=== PATIENT | female | born 1955 | race Caucasian/White ===

== ENCOUNTER 2016-11-02 09:21 | Day surgery (SDC) | payer BC ==
[2016-11-02] MEDS ORDERED: NS 500 ML IV 500 ML IV ONE (09:38)
[2016-11-02] MEDS ORDERED: TETRACAINE 0.5% OPHTH 1 DOSE AFFEYE ONE ×4 (09:40→12:35)
[2016-11-02] MEDS ORDERED: VIGAMOX 0.5% OPHTH 1 DOSE AFFEYE ONE ×6 (09:41→12:49)
[2016-11-02] MEDS ORDERED: PROLENSA OPHTH 1 DOSE AFFEYE ONE (09:52)
[2016-11-02] MEDS ORDERED: ALPHAGAN-P OPHTH 1 DOSE AFFEYE ONE (09:53)
[2016-11-02] MEDS ORDERED: CYCLOGYL 1% OPHTH 1 DOSE OP ONE ×3 (09:54→09:56)
[2016-11-02] MEDS ORDERED: MYDRIACIL OPHTH 1 DOSE AFFEYE ONE ×3 (09:54→09:56)
[2016-11-02] MEDS ORDERED: AK-DILATE 2.5% OPHTH 1 DOSE OP ONE ×3 (09:54→09:56)
[2016-11-02] MEDS ORDERED: VERSED ONE (10:05)
[2016-11-02] MEDS ORDERED: ALCAINE or OPHTHETIC AFFEYE ONE ×2 (11:28→11:30)
[2016-11-02] MEDS ORDERED: ALCAINE or OPHTHETIC 1 DOSE AFFEYE ONE ×2 (11:53→12:01)
[2016-11-02] MEDS ORDERED: VERSED IVP ONE ×2 (11:53→12:00)
[2016-11-02] MEDS ORDERED: AK-DILATE 10% OPHTH 1 DOSE AFFEYE ONE ×2 (11:54→12:03)
[2016-11-02] MEDS ORDERED: BETADINE OPHTH SOLN 5% EACHEYE ONE (12:18)
[2016-11-02] MEDS ORDERED: DUOVISC IO ONE ×2 (12:27→12:35)
[2016-11-02] MEDS ORDERED: ADRENALINE CHL INJ IJ ONE ×2 (12:27→12:35)
[2016-11-02] MEDS ORDERED: XYLOCAINE-MPF 1% IJ ONE ×2 (12:27→12:35)
[2016-11-02] MEDS ORDERED: BSS OPHTH (PLAIN) 500 ML with VANCOMYCIN HCL 500 MG VIAL 25 MG, ADRENALINE CHL INJ 1 MG IR ONE ×6 (12:28)
[2016-11-02 14:20] VITALS: BP 110/68
== END 2016-11-02 13:30 | disposition home or self-care (01) ==
LOC: EDBD 09:21 → SURG1 09:21
PROVIDERS: ATTEND Ophthalmology
PROC: 08DK3ZZ Extraction of Left Lens, Percutaneous Approach (ICD-10-PCS; principal; 2016-11-02 15:00)
PROC: 08RK3JZ Replacement of Left Lens with Synthetic Substitute, Percutaneous Approach (ICD-10-PCS; principal; 2016-11-02 15:00)
DX: H25.12 Age-related nuclear cataract, left eye (principal); H25.042 Posterior subcapsular polar age-related cataract, left eye; H52.222 Regular astigmatism, left eye
CPT/HCPCS: A4217; J0170; J2250; J3370

== ENCOUNTER 2017-01-04 07:07 | Day surgery (SDC) | payer BC ==
[2017-01-04] MEDS ORDERED: NS 500 ML IV 500 ML IV ONE (07:25)
[2017-01-04] MEDS ORDERED: TETRACAINE 0.5% OPHTH 1 DOSE AFFEYE ONE ×5 (07:30→10:02)
[2017-01-04] MEDS ORDERED: NS 1/2 1000 ML IV 500 ML IV ONE (07:30)
[2017-01-04] MEDS ORDERED: VIGAMOX 0.5% OPHTH 1 DOSE AFFEYE ONE ×6 (07:31→10:16)
[2017-01-04] MEDS ORDERED: PROLENSA OPHTH 1 DOSE AFFEYE ONE (07:42)
[2017-01-04] MEDS ORDERED: ALPHAGAN-P OPHTH 1 DOSE AFFEYE ONE (07:43)
[2017-01-04] MEDS ORDERED: AK-DILATE 2.5% OPHTH 1 DOSE OP ONE ×3 (07:44→07:46)
[2017-01-04] MEDS ORDERED: MYDRIACIL OPHTH 1 DOSE AFFEYE ONE ×3 (07:44→07:46)
[2017-01-04] MEDS ORDERED: CYCLOGYL 1% OPHTH 1 DOSE OP ONE ×3 (07:44→07:46)
[2017-01-04] MEDS ORDERED: VERSED ONE ×2 (08:43→15:57)
[2017-01-04] MEDS ORDERED: VERSED IVP ONE (09:29)
[2017-01-04] MEDS ORDERED: ALCAINE or OPHTHETIC 1 DOSE AFFEYE ONE (09:30)
[2017-01-04] MEDS ORDERED: AK-DILATE 10% OPHTH 1 DOSE AFFEYE ONE (09:33)
[2017-01-04] MEDS ORDERED: BETADINE OPHTH SOLN 5% EACHEYE ONE ×2 (09:55→09:58)
[2017-01-04] MEDS ORDERED: ADRENALINE CHL INJ IJ ONE ×2 (09:58→10:02)
[2017-01-04] MEDS ORDERED: DUOVISC IO ONE ×2 (09:59→10:02)
[2017-01-04] MEDS ORDERED: XYLOCAINE-MPF 1% IJ ONE ×2 (09:59→10:02)
[2017-01-04] MEDS ORDERED: BSS OPHTH (PLAIN) 500 ML with VANCOMYCIN HCL 500 MG VIAL 25 MG, ADRENALINE CHL INJ 1 MG IR ONE ×3 (10:02)
[2017-01-04 10:46] VITALS: BP 121/69
== END 2017-01-04 10:45 | disposition home or self-care (01) ==
LOC: SURG1 07:07
PROVIDERS: ATTEND Ophthalmology
PROC: 08DJ3ZZ Extraction of Right Lens, Percutaneous Approach (ICD-10-PCS; principal; 2017-01-04 08:30)
PROC: 08RJ3JZ Replacement of Right Lens with Synthetic Substitute, Percutaneous Approach (ICD-10-PCS; principal; 2017-01-04 08:30)
DX: H25.11 Age-related nuclear cataract, right eye (principal); H25.041 Posterior subcapsular polar age-related cataract, right eye; H52.221 Regular astigmatism, right eye
CPT/HCPCS: A4217; J0170; J2250; J3370